=== PATIENT | male | born 1950 | race Caucasian/White ===

== ENCOUNTER 2019-01-18 09:53 | Inpatient (IN) | payer MEDICARE, SELFPAY ==
[~2019-01-18] VITALS: Ht 175.3 cm; Wt 109.9 kg
[~2019-01-18 09:53] MED LIST: ACYC800 PO; ASPI325 PO; ASPI81CH PO; DIGO.125 PO; DILT240 PO; DOCU100; GABA100 PO; GEMF600 PO; INSULANI SUBQ; INSULANPEN SC; LEVFLO500 PO; LOSA25 PO; METF500 PO; METO10 PO; Novolog100 UNIT/1 SC; OXYACE5T PO; Pepcid40 MG PO; SACC250C PO; SERT100 PO; SERT50 PO
[2019-01-18 10:51] LABS: BASOPHILS ABSOLUTE AUTO 0.08 K/mm3 (0.00-0.23); BASOPHILS PERCENT AUTO 0 % (0-2); EOSINOPHILS ABSOLUTE AUTO 0.06 K/mm3 (0.00-0.68); EOSINOPHILS PERCENT AUTO 0 % (0-6); Hematocrit 44.5 % (37.0-53.0); IMMATURE GRAN ABSOLUTE AUTO 0.09 K/mm3 (0.00-0.10); IMMATURE GRAN PERCENT AUTO 1 % (0-1); LYMPHOCYTES ABSOLUTE AUTO 5.48 K/mm3 (0.84-5.20); LYMPHOCYTES PERCENT AUTO 30 % (21-46); MONOCYTES ABSOLUTE AUTO 1.03 K/mm3 (0.16-1.47); MONOCYTES PERCENT AUTO 6 % (4-13); Mean Corpuscular HGB 29.6 pg (26.0-34.0); Mean Corpuscular HGB Conc 33.7 g/dL (31.5-36.5); Mean Corpuscular Volume 88 fL (80-100); Mean Platelet Volume 9.5 fL (9.1-12.4); NEUTROPHILS ABSOLUTE AUTO 11.52 K/mm3 (1.96-9.15); NEUTROPHILS PERCENT AUTO 63 % (41-73); Platelet Count 281 K/mm3 (150-400); RDW Coefficient Variation 12.2 % (11.7-14.2); RDW Standard Deviation 39.1 fL (35.1-46.3); Red Blood Cell Count 5.06 M/mm3 (4.30-5.90); White Blood Cell Count 18.26 K/mm3 (4.00-11.30)
[2019-01-18 11:19] LABS: CPK Creatine Kinase 813 U/L (39-308); Creatine Kinase MB 10.4 ng/mL (0.0-3.6); Creatine Kinase MB Index 1.3 (0.0-4.0); Ethanol (Alcohol), Blood, Med <3 mg/dL; Free Thyroxine 1.29 ng/dL (0.70-1.60)
[2019-01-18 11:26] LABS: Alanine Aminotransfer (ALT/SGP 33 U/L (12-78); Albumin, Blood 3.9 g/dL (3.4-5.0); Albumin/Globulin Ratio 1.1 (0.8-1.8); Alk Phos 93 U/L (50-136); Anion Gap 14 mmol/L (6-16); Aspartate Aminotrans (AST/SGOT 41 U/L (12-37); Bilirubin, Total 0.9 mg/dL (0.1-1.0); Blood Urea Nitrogen 27 mg/dL (8-24); CO2, Blood 18 mmol/L (21-32); Calcium, Blood 8.7 mg/dL (8.5-10.1); Chloride, Blood 102 mmol/L (98-108); Creatinine, Blood 2.07 mg/dL (0.60-1.20); Globulin, Blood 3.6 g/dL (2.2-4.0); Glomerular Filtration Rate 34 (60-); Glucose, Blood 378 mg/dL (70-99); Potassium, Blood 4.4 mmol/L (3.5-5.5); Sodium, Blood 134 mmol/L (136-145); Total Protein, Blood 7.5 g/dL (6.4-8.2)
[2019-01-18 11:29] LABS: Acetaminophen, Random <2.0 ug/mL (10.0-30.0); Salicylate <1.7 mg/dL (2.8-20.0)
[2019-01-18 11:38] LABS: Source, Urine Catheter
[2019-01-18 11:44] LABS: Blood, Urine 1+ (Neg); Glucose Qualitative, Urine 4+ (Neg); Ketones, Urine 2+ (Neg); Leukocyte Esterase, Urine 1+ (Neg); Nitrite, Urine Neg (Neg); Protein, Urine 3+ (Neg); Specific Gravity, Urine 1.025 (1.003-1.022); Urobilinogen, Urine 2+ (Normal)
[2019-01-18 11:57] LABS: Appearance, Urine Hazy (Clear); Bilirubin, Urine 1+ (Neg); Color, Urine Amber (P-Yellow)
[2019-01-18 12:00] LABS: Red Blood Cells, Urine 0-2 /hpf (0-2); Squamous Epithelial Cells Rare /hpf (Few)
[2019-01-18 12:01] LABS: Amorphous Mod (0-Heavy); Bacteria Few /hpf
[2019-01-18 12:06] LABS: U Amphetamine Screen Not Detected; U Barbituate Screen Not Detected; U Benzodiazapine Screen Not Detected; U Buprenorphine Screen Not Detected; U Cannabinoids Screen DETECTED; U Cocaine Screen Not Detected; U Methadone Screen Not Detected; U Methamphetamine Screen Not Detected; U Opiates Screen Not Detected; U Oxycodone Screen Not Detected; U Phencyclidine Screen Not Detected; U Propoxyphene Screen Not Detected
[2019-01-18] MEDS ORDERED: INSDET100 SC (14:46)
[2019-01-18] MEDS ORDERED: Novolog100 UNIT/2 SC (14:46)
[2019-01-18 14:52] LABS: Glucose, CSF 181 mg/dL (40-70)
[2019-01-18 14:53] LABS: RBC Count, CSF 38 /mm3 (0-0); WBC Count, CSF 7 /mm3 (0-5)
[2019-01-18 15:16] LABS: Lymphocytes, CSF 75 % (40-80); Monocytes, CSF 25 % (15-45)
[2019-01-18 15:17] LABS: Appearance, CSF Clear (Clear); Color, CSF No Color (No Color)
[2019-01-18 16:23] LABS: Cryptococcus Neoformans/Gattii Not Detected (NOT DETECT); Enterovirus Not Detected (NOT DETECT); Escherichia Coli K1 Not Detected (NOT DETECT); Haemophilus Influenza Not Detected (NOT DETECT); Herpes Simplex Virus 1 Not Detected (NOT DETECT); Herpes Simplex Virus 2 Not Detected (NOT DETECT); Human Herpesvirus 6 Not Detected (NOT DETECT); Human Parechovirus Not Detected (NOT DETECT); Listeria Monocytogenes Not Detected (NOT DETECT); Neisseria Meningitidis Not Detected (NOT DETECT); Streptococcus Agalactiae Not Detected (NOT DETECT); Streptococcus Pneumoniae Not Detected (NOT DETECT); Varicella Zoster Virus Not Detected (NOT DETECT)
[2019-01-18] MEDS ORDERED: HYDCHL25 PO (17:47)
--- NOTE | 2019-01-18 19:43 | NUR ---
PT TO ICU 6 FROM ER AT 1645, CARDIAC MONITORING INITIATED. DAUGHTER AND AT BEDSIDE TO ASSIST WITH ASSESSMENT/HISTORY COMPLETION. PT CONFUSED, STATES HIS NAME IS ROSIE, THAT HE DOES NOT HAVE A LAST NAME. DOES NOT KNOW OR DATE TODAY, IS AWARE OF PLACE AND SOME OF SITUATION LEADING UP TO ADMIT. HRR, LS CTA, BP ELEVATED. PT DROWSY, FALLS ASLEEP BETWEEN CONVERSATIONS, WAKES EASILY. NO COMBATIVE OR AGRESSIVE BEHAVIORS AT THIS TIME, NO RESTRAINTS. PT IS EXPERIENCING GRADIOSE IDEAS, DENIES AGGRESSIVE BEHAVIOR IN [place] TODAY, DOES NOT UNDERSTAND WHY HE WAS ARRESTED. SPO2 MID 90'S ON 3L/NC. MULTIPLE SKIN TEARS TO UE'S AND ABRASIONS TO LE'S DRESSED, SEE ASSESSMENT. 10 RAAD NOTED TO RIGHT SIDE OF PT'S HEAD INTACT, NO DRAINAGE NOTED AT THIS TIME. NS INFUSING, MEDICATIONS ADMINISTERED PER ORDERS. PT HAS HX OF OBSTRUCTIVE SLEEP APNEA WHICH IS OBVIOUS AT THIS TIME, SPO2 DESATS INTERMITTENTLY WHILE ASLEEP/ DR. GRAY AWARE, RT AT BEDSIDE FOR EVAL. CPAP ON WITH 1L O2 BLEED IN, PT MAINTAININ SATS MID 90'S WITH CPAP AT THIS TIME. BLADDER SCAN SHOWS 247ML IN BLADDER. REPORT TO ONCOMING SHIFT.
--- NOTE | 2019-01-18 21:01 | NUR ---
CARE ASSUMED CARE AND REPORT ASSUMED FROM RO FROST. PT SLEEPING BUT EASILY AWAKENS TO VERBAL STIMULI. A/O X PERSON AND FOLLOWS COMMANDS. DENIES PAIN WHEN ASKED AT THIS TIME. LS CLEAR. NSR, HR 80-90S. WAS WEARING BIPAP, BUT REFUSED STATING HIS MOUTH IS TOO DRY. TOOK PO PILLS WITHOUT DIFFICULTY. APPEARS COMFORTABLE IN BED AND IS BACK TO SLEEP. WILL MONITOR RESP STATUS AND APPLY CPAP IF NEEDED. WOUNDS DRESSED AND DRESSING CLEAN AND DRY CURRENTLY. WILL CONTINUE TO MONITOR.
--- NOTE | 2019-01-18 23:50 | NUR ---
REASSESSMENT PT REMAINS SLEEPING AND ADJUSTS SELF IN BED. NS MIV CONTINUES TO INFUSE AT 150 ML/HR PER ORDER. AFEBRILE. VSS. TOLERATING CPAP MASK WITH 1-2L. WILL CONTINUE TO MONITOR.
[2019-01-19 03:32] LABS: BASOPHILS ABSOLUTE AUTO 0.01 K/mm3 (0.00-0.23); BASOPHILS PERCENT AUTO 0 % (0-2); EOSINOPHILS PERCENT AUTO 0 % (0-6); Hematocrit 40.3 % (37.0-53.0); Hemoglobin 13.6 g/dL (13.5-17.5); IMMATURE GRAN ABSOLUTE AUTO 0.05 K/mm3 (0.00-0.10); IMMATURE GRAN PERCENT AUTO 0 % (0-1); LYMPHOCYTES ABSOLUTE AUTO 4.44 K/mm3 (0.84-5.20); LYMPHOCYTES PERCENT AUTO 31 % (21-46); MONOCYTES ABSOLUTE AUTO 0.38 K/mm3 (0.16-1.47); MONOCYTES PERCENT AUTO 3 % (4-13); Mean Corpuscular HGB 29.7 pg (26.0-34.0); Mean Corpuscular HGB Conc 33.7 g/dL (31.5-36.5); Mean Corpuscular Volume 88 fL (80-100); Mean Platelet Volume 9.2 fL (9.1-12.4); NEUTROPHILS ABSOLUTE AUTO 9.24 K/mm3 (1.96-9.15); NEUTROPHILS PERCENT AUTO 65 % (41-73); Platelet Count 204 K/mm3 (150-400); RDW Coefficient Variation 12.3 % (11.7-14.2); RDW Standard Deviation 39.2 fL (35.1-46.3); Red Blood Cell Count 4.58 M/mm3 (4.30-5.90); White Blood Cell Count 14.12 K/mm3 (4.00-11.30)
--- NOTE | 2019-01-19 03:32 | NUR ---
REASSESSMENT PT AWOKEN FOR AM LAB DRAW. HE REMAINED CALM, COOPERATIVE, AND FOLLOWED COMMANDS APPROPRIATELY. ASKED, "WHY AM I HERE?"; WAS THEN INFORMED AND RE ORIENTED. DENIES PAIN. BANDAGES ON EXTREMITIES REMAIN DRY. VSS. MIV NS INFUSING AT 150 ML/HR PER ORDER. CONTINUES TO TOLERATE CPAP MASK. TURNS SELF IN BED. WILL CONTINUE TO MONITOR.
[2019-01-19 03:51] LABS: Albumin, Blood 3.2 g/dL (3.4-5.0); Bilirubin, Total 0.6 mg/dL (0.1-1.0); Bun/Creatinine Ratio 19.5 (12.0-20.0); Calcium, Blood 7.9 mg/dL (8.5-10.1); Creatinine, Blood 1.49 mg/dL (0.60-1.20); Globulin, Blood 3.3 g/dL (2.2-4.0); Potassium, Blood 4.5 mmol/L (3.5-5.5); Total Protein, Blood 6.5 g/dL (6.4-8.2)
--- NOTE | 2019-01-19 05:37 | NUR ---
SHIFT SUMMARY PT SLEPT MOST OF NIGHT. AWAKENS EASILY TO STIMULI. ORIENTED TO PERSON AND FOLLOWS COMMANDS APPROPRIATELY. DENIED PAIN THROUGHOUT NIGHT. AFEBRILE. MIV NS INFUSING AT 150 ML/HR PER ORDER. VOIDED X1 DURING NIGHT; 350 ML OUTPUT. VSS ENTIRE SHIFT. TOLERATED WEARING CPAP MOST OF NIGHT. WILL GIVE BEDSIDE, HANDOFF REPORT TO DAY RN.
--- NOTE | 2019-01-19 08:34 | NUR ---
ASSUMED CARE PT ALERT AND ORIENTED. PT ABLE TO STATE FULL NAME, , AND PLACE. PT STILL CONFUSED ABOUT WHY HE IS IN THE HOSPITAL. VS STABLE. BP ELEVATED THIS AM. DR. HILL CALLED AND NOTIFIED OF ELEVATION IN BP. WILL AWAIT NEW ORDERS. PT STATES HE IS SORE, BUT NOT IN PAIN AT THIS TIME. DAUGHTER IN THE ROOM IS UPDATED. WILL CONTINUE TO MONITOR CLOSELY.
--- NOTE | 2019-01-19 15:11 | NUR ---
Per admit trigger, I attempted to meet with pt/family regarding advanced care planning. Family tearful and pt expressing thoughts of demon possession. Clearly, this is not the time for this conversation. Per chart, pt is Sabianism. I will refer to Father Tyson for follow-up.
--- NOTE | 2019-01-19 17:38 | NUR ---
SHIFT SUMMARY PT ALERT AND ORIENTED. O2 SATS REMAIN ABOVE 90% ON RA. HR NSR. BP ELEVATED AND DR. MUELLER IN WITH NEW ORDERS THIS EVENING. PT ABLE TO STAND BY THE BED TO USE THE URINAL NEEDED. PT DENIES ANY PAIN, BUT REPORTS FEELING SORE. DRESSINGS ON ARMS CHANGED THIS SHIFT. PT STILL AWAITING CONSULT FROM DR. MOLINA. WILL CONTINUE TO MONITOR AND REPORT TO ONCOMING RN.
--- NOTE | 2019-01-19 20:00 | NUR ---
Boyd of Care: Patient alert and oriented to self, time, place. States he is in the hospital due to his injuries he sustained while being arrested by the police. Dr. Valles to [facility] approx 2030hr, informed this nurse of some paranoid delusions, and instructed to keep patient on 2MD hold for the night, re-evaluate in the morning. Multiple abrasions and skin tears to BLE's/BUE's, kerlex dressings in place, C/D/I. Peripheral IV to lt AC patent and intact. VSS, denies dyspnea or SOB. Using urinal at bedside without difficulty. Calm and cooperative with staff. Call light in reach, makes needs known. Will continue to monitor for pain, comfort, safety.
[2019-01-20 03:33] LABS: BASOPHILS ABSOLUTE AUTO 0.06 K/mm3 (0.00-0.23); BASOPHILS PERCENT AUTO 1 % (0-2); EOSINOPHILS ABSOLUTE AUTO 0.04 K/mm3 (0.00-0.68); EOSINOPHILS PERCENT AUTO 0 % (0-6); Hematocrit 36.3 % (37.0-53.0); IMMATURE GRAN ABSOLUTE AUTO 0.03 K/mm3 (0.00-0.10); IMMATURE GRAN PERCENT AUTO 0 % (0-1); LYMPHOCYTES ABSOLUTE AUTO 4.61 K/mm3 (0.84-5.20); LYMPHOCYTES PERCENT AUTO 39 % (21-46); MONOCYTES ABSOLUTE AUTO 0.76 K/mm3 (0.16-1.47); MONOCYTES PERCENT AUTO 7 % (4-13); Mean Corpuscular HGB 29.5 pg (26.0-34.0); Mean Corpuscular HGB Conc 33.1 g/dL (31.5-36.5); Mean Corpuscular Volume 89 fL (80-100); Mean Platelet Volume 9.6 fL (9.1-12.4); NEUTROPHILS ABSOLUTE AUTO 6.24 K/mm3 (1.96-9.15); NEUTROPHILS PERCENT AUTO 53 % (41-73); Platelet Count 190 K/mm3 (150-400); RDW Coefficient Variation 12.3 % (11.7-14.2); RDW Standard Deviation 40.2 fL (35.1-46.3); Red Blood Cell Count 4.07 M/mm3 (4.30-5.90); White Blood Cell Count 11.74 K/mm3 (4.00-11.30)
[2019-01-20 03:55] LABS: Albumin, Blood 2.8 g/dL (3.4-5.0); Bilirubin, Total 0.4 mg/dL (0.1-1.0); Bun/Creatinine Ratio 18.8 (12.0-20.0); Calcium, Blood 7.7 mg/dL (8.5-10.1); Creatinine, Blood 1.38 mg/dL (0.60-1.20); Globulin, Blood 2.7 g/dL (2.2-4.0); Potassium, Blood 3.8 mmol/L (3.5-5.5); Total Protein, Blood 5.5 g/dL (6.4-8.2)
--- NOTE | 2019-01-20 06:03 | NUR ---
Shift Summary: Patient slept throughout entire shift. Continues to deny pain, discomfort, SOB, or dyspnea. VSS, O2-92-96% on RA. Remains calm and cooperative with staff, oriented to self, place, and time. Continues to deny SI. Adjusting own position in bed, makes needs known. Will continue to monitor until report to day shift RN.
--- NOTE | 2019-01-20 07:30 | NUR ---
Recieved report from Filemon FROST. Patient awakens easily and is able to communicate his needs. He is on RA and sats mid to upper 90%'s. He has 20ga IV RW dressing intact and site WNL's and is infusing NS at 100ml/hr. He is independet in room. Uses urinal appropriately and BRP.
--- NOTE | 2019-01-20 10:00 | NUR ---
Dr Castillo has been by and states patient can be discharge at noon and has pre written script for Librium to take post hospital.He tolerated am meds and breakfast well. He has slight tremors and is a little shaky. VSS.
--- NOTE | 2019-01-20 10:30 | NUR ---
Recieved report from Fernanda RN. Patient was sleeping at time of repport but got up to chair for breakfast with SBA. He seems oriented to Place, events leading up to admission and hx. He ambulated to shower and took 30 min shower. When returning to the room i re-dressed both upper distal extremities for skin tears and abrasions and left right knee abrasion open to air. He is talking with at bedside. He is on Ra and tolerating well. He tolerated breakfast and am meds without difficulty. He has BRP and has had 1 BM this am and uses urinal appropriately. Dr Quispe here and will see while in unit. patienmt and been calm and cooperative with care.
--- NOTE | 2019-01-20 11:56 | NUR ---
Patient continues to sit up in chair. Started new 18ga RAC and infusing Abx late. Had long coneversation with patient and he states does not staes feeling that he any demons and loves dearly. As writing note chayitont independently getting back in bed with at bedside. VSS
--- NOTE | 2019-01-20 12:05 | NUR ---
Patient being discharged. PCT helping get belongings and dressed amnd he will go out in wheelchair. He has recieveed written discharge orders and one script. He has returned understanding of all information and the need not to binge drink. VSS IV pulled intact and wrapped in coban. He is independent in room
--- NOTE | 2019-01-20 14:31 | NUR ---
Patient has been sleeping in bed since lunch. has gone home . He has been cooperative with care.
--- NOTE | 2019-01-20 20:20 | NUR ---
ASSUMED CARE AFTER BEDSIDE REPORT. PT SITTING IN CHAIR WHILE VISITING W IN ROOM. PT IS PLEASANT & COOPERATIVE, PT STATES HE THINKS HE "GOT OVERHEATED" WHEN INCIDENT WHICH BROUGHT HIM TO HOSP OCCURRED. PT SMILES, MAKES GOOD EYE CONTACT. PT STATES, "I'M A PEACEFUL PERSON". PT IS ON RA, LUNGS CLEAR. VSS. UP TO TOILET TO VOID, INDEPENDENTLY. DRESSINGS TO FOREARMS BILAT. CALL LIGHT IS IN REACH. WILL CONT TO MONITOR.
--- NOTE | 2019-01-20 23:00 | NUR ---
PT SLEEPING SOUNDLY, W SONOROUS RESP. CALL LIGHT IS IN REACH.
[2019-01-21 03:43] LABS: BASOPHILS ABSOLUTE AUTO 0.04 K/mm3 (0.00-0.23); BASOPHILS PERCENT AUTO 0 % (0-2); EOSINOPHILS ABSOLUTE AUTO 0.13 K/mm3 (0.00-0.68); EOSINOPHILS PERCENT AUTO 1 % (0-6); Hematocrit 36.9 % (37.0-53.0); Hemoglobin 12.1 g/dL (13.5-17.5); IMMATURE GRAN ABSOLUTE AUTO 0.02 K/mm3 (0.00-0.10); IMMATURE GRAN PERCENT AUTO 0 % (0-1); LYMPHOCYTES ABSOLUTE AUTO 4.44 K/mm3 (0.84-5.20); LYMPHOCYTES PERCENT AUTO 48 % (21-46); MONOCYTES ABSOLUTE AUTO 0.62 K/mm3 (0.16-1.47); MONOCYTES PERCENT AUTO 7 % (4-13); Mean Corpuscular HGB 29.7 pg (26.0-34.0); Mean Corpuscular HGB Conc 32.8 g/dL (31.5-36.5); Mean Corpuscular Volume 90 fL (80-100); Mean Platelet Volume 9.1 fL (9.1-12.4); NEUTROPHILS ABSOLUTE AUTO 3.93 K/mm3 (1.96-9.15); NEUTROPHILS PERCENT AUTO 43 % (41-73); Platelet Count 176 K/mm3 (150-400); RDW Coefficient Variation 12.2 % (11.7-14.2); RDW Standard Deviation 40.2 fL (35.1-46.3); Red Blood Cell Count 4.08 M/mm3 (4.30-5.90); White Blood Cell Count 9.18 K/mm3 (4.00-11.30)
--- NOTE | 2019-01-21 04:00 | NUR ---
PT WAS AWAKENED FOR LAB DRAW. UP TO TOILET TO VOID. DENIES DISCOMFORT OR OTHER NEEDS. VSS. LIGHTS OUT, WILL ENCOURAGE REST. CONT TO MONITOR.
[2019-01-21 04:03] LABS: Alanine Aminotransfer (ALT/SGP 25 U/L (12-78); Albumin, Blood 2.7 g/dL (3.4-5.0); Albumin/Globulin Ratio 0.9 (0.8-1.8); Alk Phos 67 U/L (50-136); Anion Gap 6 mmol/L (6-16); Aspartate Aminotrans (AST/SGOT 14 U/L (12-37); Bilirubin, Total 0.4 mg/dL (0.1-1.0); Blood Urea Nitrogen 19 mg/dL (8-24); Bun/Creatinine Ratio 16.7 (12.0-20.0); CO2, Blood 25 mmol/L (21-32); CPK Creatine Kinase 190 U/L (39-308); Calcium, Blood 8.1 mg/dL (8.5-10.1); Chloride, Blood 112 mmol/L (98-108); Creatinine, Blood 1.14 mg/dL (0.60-1.20); Globulin, Blood 2.9 g/dL (2.2-4.0); Glomerular Filtration Rate >60 (60-); Glucose, Blood 100 mg/dL (70-99); Potassium, Blood 3.5 mmol/L (3.5-5.5); Sodium, Blood 143 mmol/L (136-145); Total Protein, Blood 5.6 g/dL (6.4-8.2)
--- NOTE | 2019-01-21 07:30 | NUR ---
Recieved report from Jean Carlos FROST. Patient resting in bed and awakens easily when entering the room. He is very appropriate with his communicat and recolection of information. He is on RA and denies any SOB or distress. He has 18ga IV RAC dressing intact and site WNL's and is flushed and SL'd. Patient is independent in room.
--- NOTE | 2019-01-21 10:53 | NUR ---
Patient is sitting up in bed gettiong ASBX. ADAPT was by and talked with patient. She wqas discussing financial information with and patient was a little agitated when they were talking about possible temporary exclusion from money, and stated they will talk about it later and then went with discussion. stated that she feels better with him today and he is better and feels safe when talking with welfare case worker.
--- NOTE | 2019-01-21 12:30 | NUR ---
DR HOLGUIN BY AND STATED THAT THE HOLD CAN BE DROPPED AND BE TRANSFERED OUT OF ICU. COMMUNICATED WITH DR HILL AND HE WILL BE COMING DOWN TO SIGN RELEASE. PATIENTS FAMILY AT BEDSIDE AND HE HAS BEEN APPROPRIATE. HE REMAINS INDEPENDENT IN ROOM AND ON RA. HE TOLERATED LUNCHWITHOUT DIFFICULTY. DOOR REPAIRER BUS NOTIFIED.
--- NOTE | 2019-01-21 12:58 | NUR ---
Bilateral distal UE's cleaned and re-dressed with petroleumdressings, telfa, and kurlex. Echo being done currently. Dr Brunner was here and assesed patient and will have him follow up with Podiatry out patient. Assess right large toe for infection. Plan for Abx x 2 day and possibley home.
--- NOTE | 2019-01-21 13:38 | NUR ---
Echocardiogram completed.
--- NOTE | 2019-01-21 16:30 | NUR ---
Gave report to Dina FROST. Patient was walked to third floor and very stable. Family texted of move to third floor 302. He remains on RA. His arm started to bleed on way up and placed telfa over site. All his belongings were in red bag and were taken up on second trip at blaced by window shelf. Aid and RN in room on arrival.
--- NOTE | 2019-01-21 16:34 | NUR ---
PT. ARRIVED TO FLOOR FROM ICU-6 ACCOMPANIED BY MARGOT CHAPPELL. PT. PLEASANT AND COOPERATIVE.DRESSINGS ON B FOREARMS COVERING SKIN TEARS ANS ABRASIONS PER MARGOT CHAPPELL. PT. REPORTING PAINFUL RIGHT ELBOW. PT. A&O, STEADY ON FEET.
--- NOTE | 2019-01-21 18:44 | NUR ---
PT. SITTING ON WINDOW SEAT SPOUSE WITH HIM. NO CHANGES SINCE COMING TO ROOM. PLEASANT AND COOPERATIVE.
--- NOTE | 2019-01-22 04:09 | NUR ---
SHIFT SUMMARY: 68 Y/O MALE RESTED COMFORTABLY ALL SHIFT, BILATERAL ARM DRESSING AND FOREHEAD INCISION WITH RAAD WELL APPROXIMATED, ALERT AND ORIENTED X4, DENIES PAIN OR NAUSEA, WEARING CONTINUOUS PULSE OXIMETER AT 93% ON ROOM AIR, CONVERSING POSITIVELY WITH ALL STAFF, BED LOW POSITION, CALL LIGHT AT SIDE.
[2019-01-22 04:52] LABS: BASOPHILS ABSOLUTE AUTO 0.05 K/mm3 (0.00-0.23); BASOPHILS PERCENT AUTO 1 % (0-2); EOSINOPHILS ABSOLUTE AUTO 0.16 K/mm3 (0.00-0.68); EOSINOPHILS PERCENT AUTO 2 % (0-6); Hematocrit 36.7 % (37.0-53.0); Hemoglobin 12.3 g/dL (13.5-17.5); IMMATURE GRAN ABSOLUTE AUTO 0.02 K/mm3 (0.00-0.10); IMMATURE GRAN PERCENT AUTO 0 % (0-1); LYMPHOCYTES ABSOLUTE AUTO 4.22 K/mm3 (0.84-5.20); LYMPHOCYTES PERCENT AUTO 53 % (21-46); MONOCYTES ABSOLUTE AUTO 0.57 K/mm3 (0.16-1.47); MONOCYTES PERCENT AUTO 7 % (4-13); Mean Corpuscular HGB 29.5 pg (26.0-34.0); Mean Corpuscular HGB Conc 33.5 g/dL (31.5-36.5); Mean Corpuscular Volume 88 fL (80-100); NEUTROPHILS ABSOLUTE AUTO 2.97 K/mm3 (1.96-9.15); NEUTROPHILS PERCENT AUTO 37 % (41-73); Platelet Count 157 K/mm3 (150-400); RDW Coefficient Variation 12.2 % (11.7-14.2); RDW Standard Deviation 39.3 fL (35.1-46.3); Red Blood Cell Count 4.17 M/mm3 (4.30-5.90); White Blood Cell Count 7.99 K/mm3 (4.00-11.30)
[2019-01-22 05:16] LABS: Anion Gap 8 mmol/L (6-16); Blood Urea Nitrogen 17 mg/dL (8-24); Bun/Creatinine Ratio 15.2 (12.0-20.0); CO2, Blood 24 mmol/L (21-32); Calcium, Blood 8.4 mg/dL (8.5-10.1); Chloride, Blood 109 mmol/L (98-108); Creatinine, Blood 1.12 mg/dL (0.60-1.20); Glomerular Filtration Rate >60 (60-); Glucose, Blood 119 mg/dL (70-99); Potassium, Blood 3.5 mmol/L (3.5-5.5); Sodium, Blood 141 mmol/L (136-145)
--- NOTE | 2019-01-22 18:48 | NUR ---
PT. SITTING ON WINDOW SEAT. DRESSINGS ON BFA AND RIGHT KNEE CHANGED TODAY. OCCLUSIVE DSGS PLACED ON SKIN TEAR AREAS AFTER AREA CLEANED AND SKIN PREP PLACED. MEPILEX PLACED ON RIGHT KNEE WOUND. LEFT KNEE AND MORRISON WOUNDS SCABBED OVER NO DRSGS PLACED. PT. DID HAVE A SHOWER TODAY. PT. HAS BEEN PLEASANT AND COOPERATIVE THIS SHIFT.
--- NOTE | 2019-01-23 04:24 | NUR ---
SHIFT SUMMARY: 68 Y/O OBESE MALE RESTED COMFORTABLY ALL SHIFT, DENIES PAIN OR NAUSEA, BILATERAL FOREARMS COVERED WITH TEGADERMS DUE NUMEROUS SKIN TEARS, ALERT AND ORIENTED X 4 WITH THOUGHT PROCESS ORGANIZED AND ABLE TO CARRY LUCID CONVERSATION, ABLE TO AMBULATE BATHROOM AND BACK WITH GAIT SLOW AND STEADY, O2 SATS 93% ON ROOM AIR VIA CONTINUOUS PULSE OXIMETER, BED LOW POSITION, CALL LIGHT AT SIDE.
[2019-01-23 08:38] LABS: Vancomycin, Trough 24.2 ug/mL (5.0-10.0)
--- NOTE | 2019-01-23 09:32 | NUR ---
spoke with dr. prabhakar and he states that he is okay with discharge as long as the is comfortable taking him home. will let this be known to dr. daniel prior to discharge paperwork being placed.
[2019-01-23] MEDS ORDERED: Amlodipine Besy10 MG PO (10:30)
[2019-01-23] MEDS ORDERED: ATEN25 PO (10:31)
[2019-01-23] MEDS ORDERED: OLAN10 PO (10:31)
--- NOTE | 2019-01-23 11:59 | NUR ---
DISCHARGE SUMMARY PATIENT PLEASANT, INFORMATION GIVEN TO THE PATIENT AND HIS AT DISCHARGE. TALKED ABOUT WOUND CARE PRIOR TO DISCHARGE AND PATIENT WAS GIVEN A SECOND SET OF SUPPLIES IN CASE HE NEEDED THEM PRIOR TO HIS DOCTORS APPOINTMENT. PATIENT IS [facility] AND [facility] WILL CALL FOR AN APPOINTMENT. THEY SPOKE WHT ODILIA PAYTON PRIOR TO DISCHARGE AND HAVE FACILITATED THEIR DISCAHRGE NEEDS WITH HER. FOLLOW UP WAS SET UP WITH DR. LR IN PODIATRY PRIOR TO HIS DISCHARGE. ALL QUESTIONS FOR THE PATIENT AND FAMILY WERE ANSWERED PRIOR TO DISCHARGE.
== END 2019-01-23 11:40 | disposition home or self-care (01) | DRG 885 ==
LOC: ER 09:53 → ICUW 14:44 → ICUE 14:44 → MEDS 01-21 16:36 → ENPENDDIS 01-23 09:30 → MEDS 01-23 11:40
PROVIDERS: Emergency Medicine; Family Medicine; Hospitalist; Pharmacist; Physician Assistant; ADMIT Internal Medicine
PROC: 009U3ZX Drainage of Spinal Canal, Percutaneous Approach, Diagnostic (ICD-10-PCS; principal; 2019-01-19)
PROC: 0HQ0XZZ Repair Scalp Skin, External Approach (ICD-10-PCS; 2019-01-19)
DX: F31.2 Bipolar disorder, current episode manic severe with psychotic features (principal); F23 Brief psychotic disorder; N17.9 Acute kidney failure, unspecified; M62.82 Rhabdomyolysis; R68.83 Chills (without fever); I10 Essential (primary) hypertension; E11.22 Type 2 diabetes mellitus with diabetic chronic kidney disease; N18.3 Chronic kidney disease, stage 3 (moderate); S01.01XA Laceration without foreign body of scalp, initial encounter; T14.8XXA Other injury of unspecified body region, initial encounter
CPT/HCPCS: 12004; 36415; 62270; 70450; 70551; 71045; 80048; 80053; 80202; 81001; 82550; 82553; 82945; 82947; 83036; 83880; 84157; 84439; 84443; 84460; 85025; 85651; 86140; 86317; 86618; 86788; 86789; 86803; 87040; 87077; 87086; 87186; 87389; 87483; 89051; 90471; 90714; 93306; 94660; 94762; 96361-59; 96365-59; 96366-59; 96372-59; 96375-59; 97110; 97116; 97161; 99285-25; G0480; J0696; J1100; J1200; J1630; J2060; J2250; J3010; J3370; J7030; J7050; J8499

== ENCOUNTER 2024-11-16 03:14 | Day surgery (SDC) | payer MEDICARE ==
[~2024-11-16 03:14] MED LIST changes: +ATEN25 PO; +Amlodipine Besy10 MG PO; +HYDCHL25 PO; +INSDET100 SC; +Novolog100 UNIT/2 SC; +OLAN10 PO
== END 2024-11-16 23:57 | disposition home or self-care (01) ==
LOC: WOUND 03:14
DX: E11.621 Type 2 diabetes mellitus with foot ulcer (principal); L97.512 Non-pressure chronic ulcer of other part of right foot with fat layer exposed; E11.40 Type 2 diabetes mellitus with diabetic neuropathy, unspecified; E11.51 Type 2 diabetes mellitus with diabetic peripheral angiopathy without gangrene; I10 Essential (primary) hypertension; I48.91 Unspecified atrial fibrillation; Z88.8 Allergy status to other drugs, medicaments and biological substances
CPT/HCPCS: G0463

== ENCOUNTER 2024-12-07 08:00 | Day surgery (SDC) | payer MEDICARE | END 2024-12-07 23:00 | disposition home or self-care (01) | LOC: WOUND 08:00 | DX: E11.621 Type 2 diabetes mellitus with foot ulcer (principal); L97.512 Non-pressure chronic ulcer of other part of right foot with fat layer exposed; E11.40 Type 2 diabetes mellitus with diabetic neuropathy, unspecified; I10 Essential (primary) hypertension; I48.91 Unspecified atrial fibrillation ==

== ENCOUNTER 2024-12-14 04:51 | Day surgery (SDC) | payer MEDICARE | END 2024-12-14 23:00 | disposition home or self-care (01) | LOC: WOUND 04:51 | DX: E11.621 Type 2 diabetes mellitus with foot ulcer (principal); L97.512 Non-pressure chronic ulcer of other part of right foot with fat layer exposed; E11.40 Type 2 diabetes mellitus with diabetic neuropathy, unspecified | CPT/HCPCS: G0463 ==

== ENCOUNTER 2024-12-28 01:05 | Day surgery (SDC) | payer MEDICARE | END 2024-12-28 23:00 | disposition home or self-care (01) | LOC: WOUND 01:05 | DX: E11.621 Type 2 diabetes mellitus with foot ulcer (principal); L97.512 Non-pressure chronic ulcer of other part of right foot with fat layer exposed; E11.40 Type 2 diabetes mellitus with diabetic neuropathy, unspecified | CPT/HCPCS: G0463 ==

== ENCOUNTER 2025-01-04 00:42 | Day surgery (SDC) | payer MEDICARE ==
[2025-01-04] MEDS ORDERED: Lidocaine HCl 4% Cream 5 GM ONE (13:25)
== END 2025-01-04 23:00 | disposition home or self-care (01) ==
LOC: WOUND 00:42
DX: E11.621 Type 2 diabetes mellitus with foot ulcer (principal); L97.519 Non-pressure chronic ulcer of other part of right foot with unspecified severity; E11.40 Type 2 diabetes mellitus with diabetic neuropathy, unspecified
CPT/HCPCS: A9270

== ENCOUNTER 2025-02-15 01:23 | Day surgery (SDC) | payer MEDICARE | END 2025-02-15 23:00 | disposition home or self-care (01) | LOC: WOUND 01:23 | DX: E11.621 Type 2 diabetes mellitus with foot ulcer (principal); L97.515 Non-pressure chronic ulcer of other part of right foot with muscle involvement without evidence of necrosis; E11.40 Type 2 diabetes mellitus with diabetic neuropathy, unspecified ==

== ENCOUNTER 2025-03-29 04:21 | Day surgery (SDC) | payer MEDICARE | END 2025-03-29 23:26 | disposition home or self-care (01) | LOC: WOUND 04:21 | DX: E11.621 Type 2 diabetes mellitus with foot ulcer (principal); E11.40 Type 2 diabetes mellitus with diabetic neuropathy, unspecified; L97.512 Non-pressure chronic ulcer of other part of right foot with fat layer exposed | CPT/HCPCS: G0463 ==

== ENCOUNTER 2025-04-12 00:42 | Day surgery (SDC) | payer MEDICARE | END 2025-04-12 23:00 | disposition home or self-care (01) | LOC: WOUND 00:42 | DX: E11.621 Type 2 diabetes mellitus with foot ulcer (principal); E11.40 Type 2 diabetes mellitus with diabetic neuropathy, unspecified; I10 Essential (primary) hypertension; I48.91 Unspecified atrial fibrillation; L97.512 Non-pressure chronic ulcer of other part of right foot with fat layer exposed | CPT/HCPCS: A9270 ==

== ENCOUNTER 2025-04-26 00:58 | Day surgery (SDC) | payer MEDICARE | END 2025-04-26 22:00 | disposition home or self-care (01) | LOC: WOUND 00:58 | DX: E11.621 Type 2 diabetes mellitus with foot ulcer (principal); L97.512 Non-pressure chronic ulcer of other part of right foot with fat layer exposed; E11.40 Type 2 diabetes mellitus with diabetic neuropathy, unspecified; I10 Essential (primary) hypertension ==

== ENCOUNTER 2025-05-10 07:26 | Day surgery (SDC) | payer MEDICARE | END 2025-05-10 23:35 | disposition home or self-care (01) | LOC: WOUND 07:26 | DX: E11.621 Type 2 diabetes mellitus with foot ulcer (principal); L97.512 Non-pressure chronic ulcer of other part of right foot with fat layer exposed; E11.40 Type 2 diabetes mellitus with diabetic neuropathy, unspecified; I10 Essential (primary) hypertension; I48.91 Unspecified atrial fibrillation ==

== ENCOUNTER 2025-05-24 00:22 | Day surgery (SDC) | payer MEDICARE | END 2025-05-24 23:00 | disposition home or self-care (01) | LOC: WOUND 00:22 | DX: E11.621 Type 2 diabetes mellitus with foot ulcer (principal); L97.512 Non-pressure chronic ulcer of other part of right foot with fat layer exposed; E11.40 Type 2 diabetes mellitus with diabetic neuropathy, unspecified; I10 Essential (primary) hypertension; I48.91 Unspecified atrial fibrillation | CPT/HCPCS: G0463 ==